=== PATIENT | female | born 1965 | race Caucasian/White ===

== ENCOUNTER → 2016-08-05 | Outpatient (CLI) | payer BC ==
--- NOTE | 2016-08-05 14:39 | DI ---
US PELVIC LIMITED (NON-OB),08/05/2016 2:09 PM: Clinical History: Abnormal menstrual periods. Previous Exam: None at this facility. Findings: Multiple transabdominal grayscale and color Doppler sonographic images are obtained through the pelvi s demonstrating a normal-appearing uterus measuring 7.4 x 3.4 x 5.5 cm. The endometrial stripe measur ed 6 mm. Visualized portions of the urinary bladder are unremarkable. There is no free fluid. Impression: Normal pelvic ultrasound for a patient who is still having regular menses. If this patient has defini tely gone through menopause, endometrial biopsy may be appropriate.
== END ==
LOC: US 14:03
PROVIDERS: ATTEND Family Medicine
DX: N92.6 Irregular menstruation, unspecified (principal)
CPT/HCPCS: 76857; G0202